=== PATIENT | male | born 1970 | race Two or more races ===

== ENCOUNTER 2023-10-24 08:17 | Emergency (ER) | payer OTHER ==
[~2023-10-24] VITALS: Ht 167.6 cm; Wt 81.6 kg
[2023-10-24] MEDS ORDERED: ROSUVASTATIN CA20 MG PO (08:22)
[2023-10-24] MEDS ORDERED: KETOROLAC TROMETHAMINE 30 MG VIAL IM STA (09:15)
[2023-10-24] MEDS ORDERED: KETOROLAC TROMETHAMINE 30 MG VIAL ONE (09:22)
[2023-10-24] MEDS ORDERED: NEURONTIN300 MG PO (11:04)
== END 2023-10-24 11:32 | disposition home or self-care (01) ==
LOC: ER 08:18
DX: M25.561 Pain in right knee (principal)